=== PATIENT | female | born 1960 | race African-American/Black ===

== ENCOUNTER 2017-07-06 14:35 | Inpatient (IN) | payer MEDICAID ==
[~2017-07-06] VITALS: Ht 154.9 cm; Wt 45.4 kg
[2017-07-06 15:03] VITALS: BP 136/84
--- NOTE | 2017-07-06 16:11 | Emergency Room Report ---
History of Present Illness General Chief Complaint: Pain Source: Patient (Dung Monzon) Present Illness HPI 57-year-old female patient presents ER complaining of bilateral hand and feet pain and numbness. Patient reports history of diabetes. Patient reports she has not seen a primary care provider and "a long time". Reports that she builds up an accumulation of her diabetes medications and has been using those to treat her diabetes. Patient denies fever, chest pain, shortness of breath. patient reports that she did not take her diabetes medications today due to knowing that she was coming to the ER and expected be treated here. Patient denies history of arthritis. Patient denies nausea, vomiting, abdominal pain. She reports she is able to ambulate without difficulty. Difficulty opening item secondary to hand numbness. Patient reports history of smoking. (Dung Monzon) Allergies: Coded Allergies: No Known Allergies (Unverified , 07/06/17) Patient History Past Medical History: see triage record Last Menstrual Period: [place] Now: No Reviewed Nursing Documentation: PMH: Agreed; PSxH: Agreed (Dung Monzon) Nursing Documentation-PMH Hx Diabetes: Yes (Dung Monzon) Review of Systems All Other Systems: negative except mentioned in HPI (Dung Monzon) Physical Exam Vital Signs Date Time Temp Pulse Resp B/P (MAP) Pulse Ox O2 Delivery O2 Flow Rate FiO2 07/06/17 14:53 98.1 74 18 136/84 98 98.1 07/06/17 15:03 Room Air Sp02 EP Interpretation: reviewed, normal General Appearance: well appearing, no apparent distress, alert, GCS 15, non- toxic Head: normocephalic, atraumatic Eyes: bilateral eye normal inspection, bilateral eye PERRL Neck: full range of motion Respiratory: lungs clear, normal breath sounds, no rhonchi, no respiratory distress, no accessory muscle use, no wheezing, speaking full sentences Cardiovascular #1: regular rate, rhythm, no edema Cardiovascular #2: 2+ radial (R), 2+ radial (L), 2+ dorsalis pedis (R), 2+ dorsalis pedis (L) Musculoskeletal: back normal, digits/nails normal, gait/station normal, normal range of motion, non-tender, swelling - mild swelling of PIP joints, other Neurologic: alert, oriented x3, responsive, motor strength/tone normal, sensory intact Psychiatric: mood/affect normal Skin: no rash (Dung Monzon) Medical Decision Making PA Attestation Dr. Bryan is my supervising Physician whom patient management has been discussed with. (Dung Monzon) Diagnostic Impression: Primary Impression: Hyperglycemia Additional Impressions: Bilateral hand pain Foot pain, bilateral ER Course Pt. presents to the ED c/o bilateral foot and hand pain, uncontrolled diabetes. Ddx considered but are not limited to sprain, strain, gout, arthritis, peripheral neuropathy. Vital signs: are WNL, pt. is afebrile Ordered labs. ER COURSE: CBC unremarkable CMP shows no elevation of LFTs BNP elevated Drug screen positive for THC EKG shows no ST elevations or arrhythmia Glucose elevated at 584, will order IV fluids and insulin. Hand and foot symptoms consistent with arthritis vs diabetes complications. Informed patient she needs outpatient followup with PCP for referral to keyboard specialist and/or rheumatology. Consult with Dr. Bryan, patient okay to be admitted for hyperglycemia. Patient will be admitted. - Please note that this Emergency Department Report was dictated using [employer] technology software, occasionally this can lead to erroneous entry secondary to interpretation by the dictation equipment. Labs Test 07/06/17 15:50 White Blood Count 8.3 K/UL (4.8-10.8) Red Blood Count 5.67 M/UL (4.20-5.40) Hemoglobin 17.5 G/DL (12.0-16.0) Hematocrit 51.6 % (37.0-47.0) Mean Corpuscular Volume 91 FL (80-99) Mean Corpuscular Hemoglobin 30.8 PG (27.0-31.0) Mean Corpuscular Hemoglobin Concent 33.9 G/DL (32.0-36.0) Red Cell Distribution Width 11.5 % (11.6-14.8) Platelet Count 124 K/UL (150-450) Mean Platelet Volume 12.4 FL (6.5-10.1) Neutrophils (%) (Auto) 76.3 % (45.0-75.0) Lymphocytes (%) (Auto) 17.2 % (20.0-45.0) Monocytes (%) (Auto) 4.5 % (1.0-10.0) Eosinophils (%) (Auto) 0.9 % (0.0-3.0) Basophils (%) (Auto) 1.1 % (0.0-2.0) Sodium Level 135 MMOL/L (136-145) Potassium Level 4.6 MMOL/L (3.5-5.1) Chloride Level 97 MMOL/L (98-107) Carbon Dioxide Level 31 MMOL/L (21-32) Anion Gap 7 mmol/L (5-15) Blood Urea Nitrogen 21 mg/dL (7-18) Creatinine 0.9 MG/DL (0.55-1.30) Estimat Glomerular Filtration Rate > 60 mL/min (>60) Glucose Level 584 MG/DL (74-106) Calcium Level 9.4 MG/DL (8.5-10.1) Total Bilirubin 0.4 MG/DL (0.2-1.0) Aspartate Amino Transf (AST/SGOT) 23 U/L (15-37) Alanine Aminotransferase (ALT/SGPT) 51 U/L (12-78) Alkaline Phosphatase 107 U/L (46-116) Total Creatine Kinase 62 U/L (26-308) Creatine Kinase MB 2.6 NG/ML (0.0-3.6) Creatine Kinase MB Relative Index 4.1 C-Reactive Protein, Quantitative < 0.4 mg/dL (0.00-0.90) Pro-B-Type Natriuretic Peptide 435 pg/mL (0-125) Total Protein 6.8 G/DL (6.4-8.2) Albumin 3.6 G/DL (3.4-5.0) Globulin 3.2 g/dL Albumin/Globulin Ratio 1.1 (1.0-2.7) Urine Opiates Screen Negative (NEGATIVE) Urine Barbiturates Screen Negative (NEGATIVE) Phencyclidine (PCP) Screen Negative (NEGATIVE) Urine Amphetamines Screen Negative (NEGATIVE) Urine Benzodiazepines Screen Negative (NEGATIVE) Urine Cocaine Screen Negative (NEGATIVE) Urine Marijuana (THC) Screen Positive (NEGATIVE) (Dung Monzon) ER Course History and physical reviewed by me. Evaluation and treatment discussed in detail. Contacted Dr. Chavez for admission. (Ashkan Bryan M.D.) EKG Diagnostic Results Rate: normal Rhythm: NSR ST Segments: no acute changes ASA given to the pt in ED: No PA Scribe Text Sami Monzon PA-C (Dung Monzon) Rhythm Strip Diag. Results EP Interpretation: yes Rate: 75 Rhythm: NSR, no PVC's, no ectopy PA Scribe Text Sami Monzon PA-C (Dung Monzon) Last Vital Signs Date Time Temp Pulse Resp B/P (MAP) Pulse Ox O2 Delivery O2 Flow Rate FiO2 07/06/17 15:03 98.1 88 18 136/84 98 Room Air 98.1 (Dung Monzon.Ap[place]) Disposition: ADMITTED INPATIENT Condition: Serious Referrals: NOT CHOSEN IPA/,REFERRING (PCP) Dung Monzon Jul 06, 2017 16:11 Ashkan Bryan M.D. July 08, 2017 16:45
[2017-07-06 16:25] LABS: BASOPHILS % (AUTO) 1.1 % (0.0-2.0); EOSINOPHILS % (AUTO) 0.9 % (0.0-3.0); HEMATOCRIT 51.6 % (37.0-47.0); HEMOGLOBIN 17.5 G/DL (12.0-16.0); LYMPHOCYTES % (AUTO) 17.2 % (20.0-45.0); MEAN CORPUSCULAR VOLUME 91 FL (80-99); MONOCYTES % (AUTO) 4.5 % (1.0-10.0); NEUTROPHILS % (AUTO) 76.3 % (45.0-75.0); PLATELET COUNT 124 K/UL (150-450); RED BLOOD COUNT 5.67 M/UL (4.20-5.40); RED CELL DISTRIBUTION WIDTH 11.5 % (11.6-14.8); WHITE BLOOD COUNT 8.3 K/UL (4.8-10.8)
[2017-07-06 16:45] LABS: ALANINE AMINOTRANSFERASE 51 U/L (12-78); ALBUMIN 3.6 G/DL (3.4-5.0); ALBUMIN/GLOBULIN RATIO 1.1 (1.0-2.7); ALKALINE PHOSPHATASE 107 U/L (46-116); ANION GAP 7 mmol/L (5-15); ASPARTATE AMINO TRANSFERASE 23 U/L (15-37); BILIRUBIN,TOTAL 0.4 MG/DL (0.2-1.0); BLOOD UREA NITROGEN 21 mg/dL (7-18); CALCIUM 9.4 MG/DL (8.5-10.1); CARBON DIOXIDE 31 MMOL/L (21-32); CHLORIDE 97 MMOL/L (98-107); CKMB 2.6 NG/ML (0.0-3.6); CREATINE KINASE 62 U/L (26-308); CREATININE 0.9 MG/DL (0.55-1.30); POTASSIUM 4.6 MMOL/L (3.5-5.1); SODIUM 135 MMOL/L (136-145)
[2017-07-06] MEDS ORDERED: METFORMIN HCL1000 M1 ORAL (17:14)
[2017-07-06] MEDS ORDERED: VITAMIN D1000 UNI1 ORAL (17:14)
[2017-07-06] MEDS ORDERED: LANTUS SOL100 UNIT/1 SUBQ (17:14)
[2017-07-06 18:50] VITALS: BP 134/79
[2017-07-06 20:34] VITALS: BP 159/88
[2017-07-06] MEDS ORDERED: Morphine Sulfate 4mg/ml Inj IVP PRN (21:30)
[2017-07-06] MEDS ORDERED: Zolpidem 5mg tab ORAL PRN (21:30)
[2017-07-06] MEDS ORDERED: Levemir Flexpen SUBQ SCH (23:00)
[2017-07-06 23:13] VITALS: BP 144/79
[2017-07-07 04:31] VITALS: BP 141/72
[2017-07-07] MEDS: NovoLOG Insulin Flexpen SUBQ SCH ×4 (06:04→12:06)
[2017-07-07 07:06] LABS: BASOPHILS % (AUTO) 0.8 % (0.0-2.0); EOSINOPHILS % (AUTO) 1.2 % (0.0-3.0); HEMATOCRIT 46.7 % (37.0-47.0); HEMOGLOBIN 16.5 G/DL (12.0-16.0); MEAN CORPUSCULAR VOLUME 90 FL (80-99); MONOCYTES % (AUTO) 6.4 % (1.0-10.0); NEUTROPHILS % (AUTO) 68.7 % (45.0-75.0); PLATELET COUNT 125 K/UL (150-450); RED CELL DISTRIBUTION WIDTH 11.3 % (11.6-14.8); WHITE BLOOD COUNT 8.6 K/UL (4.8-10.8)
[2017-07-07 07:09] LABS: ANION GAP 7 mmol/L (5-15); BLOOD UREA NITROGEN 15 mg/dL (7-18); CALCIUM 8.5 MG/DL (8.5-10.1); CARBON DIOXIDE 27 MMOL/L (21-32); CHLORIDE 103 MMOL/L (98-107); CREATININE 0.7 MG/DL (0.55-1.30); POTASSIUM 3.7 MMOL/L (3.5-5.1); SODIUM 137 MMOL/L (136-145)
[2017-07-07 09:00] VITALS: BP 138/78
[2017-07-07] MEDS ORDERED: metFORMIN 500mg tab ORAL SCH (09:00)
[2017-07-07] MEDS ORDERED: Vitamin D 1000 IU Tab ORAL SCH (09:00)
--- NOTE | 2017-07-07 12:15 | Consultation ---
DATE OF CONSULTATION: 07/07/2017 ENDOCRINOLOGY CONSULTATION CONSULTING PHYSICIAN: Chava Alas M.D. REFERRING PHYSICIAN: Heber Chavez D.O. REASON FOR CONSULTATION: Diabetes management. HISTORY OF PRESENT ILLNESS: The patient is a pleasant 57-year-old female with history of diabetes over the past two years admitted to the hospital with hyperglycemia without any ketoacidosis. Also complaining of bilateral lower extremities feet numbness. As an outpatient, she has been on insulin dose of 20 units daily with metformin. She has not been compliant with her diabetic medication. PAST MEDICAL HISTORY: Diabetes. FAMILY HISTORY: Diabetes. SOCIAL HISTORY: Denies any smoking, alcohol, or drug use. REVIEW OF SYSTEMS: As per history of present illness. LABORATORY VALUES: Sodium 135, potassium 4.6, chloride 97, bicarb 31, BUN 21, creatinine 0.9, glucose of 584. PHYSICAL EXAMINATION: GENERAL: She is awake and alert. VITAL SIGNS: Blood pressure is 141/72, pulse 69, temperature 97.2 degrees, respiratory rate of 20. HEENT: Pupils are equal and reactive to light and accommodation. Sclerae anicteric. NECK: No JVD. No thyromegaly. No bruit. LUNGS: Clear. HEART: Regular rate and rhythm. ABDOMEN: Positive bowel sounds. EXTREMITIES: No clubbing, cyanosis, or edema. DIAGNOSIS: Diabetes out of control without any ketoacidosis. PLAN: 1. Start Levemir 30 units at bedtime. 2. Start NovoLog 6 units before each meal. 3. Continue with metformin 1000 mg b.i.d. 4. NovoLog sliding scale is in order, before meals and at bedtime. 5. Further adjustment according to blood glucose values. Thank you, Dr. Chavez, for the courtesy of this consultation. Chava Alas M.D. DR: ANTONIO JOB#: [id number] CC:
[2017-07-07] MEDS ORDERED: 1/2 NS 1000ml IV ONE (13:59)
[2017-07-07] MEDS ORDERED: D5W 275ml ONE (13:59)
--- NOTE | 2017-07-07 16:54 | Cardiology Report ---
APPROVED REPORT EKG Measurement Heart [id number] Normal sinus rhythm Possible Anterior infarct, age undetermined Abnormal ECG
--- NOTE | 2017-07-07 21:00 | History and Physical Report ---
DATE OF ADMISSION: 07/06/2017 TIME: 2 p.m. CONSULTANTS: Chava Alas M.D. CHIEF COMPLAINT: Hyperglycemia, diabetes. BRIEF HISTORY: The patient is a 57-year-old female, who lives at home with history of diabetes, apparently has been negligent and taking her medications for the past month. She was feeling little bit weak and lethargic. I checked her sugar, it was 583. The patient came to [facility], diagnosed with above, admitted to the medical floor for further treatment. Currently, feeling better and wants to go home. PAST MEDICAL HISTORY: Diabetes. PAST SURGICAL HISTORY: Nothing. MEDICATIONS: Glucophage, NovoLog, Levemir, morphine, Ambien, and Novolin. ALLERGIES: Denies. SOCIAL HISTORY: Positive smoke. No alcohol. Positive marijuana use. REVIEW OF SYSTEMS: No chest pain. No shortness of breath. No nausea, vomiting, or diarrhea. PHYSICAL EXAMINATION: GENERAL: Calm in bed, oriented x3, in no acute distress. VITAL SIGNS: Temperature is 98 degrees, pulse 66, respirations 20, and blood pressure 130/78. CARDIOVASCULAR: No murmur. LUNGS: Distant and clear. ABDOMEN: Bowel sounds positive. Nontender. Nondistended. EXTREMITIES: No cyanosis or edema. NEUROLOGIC: Cranial nerves II through XII grossly intact. Deep tendon reflexes 2+. Muscle strength 5/5. LABORATORY DATA: Labs at this time show CBC is normal, actually platelets was 124 and today is 125. BMP yesterday, glucose 584 and today glucose 204, otherwise everything is normal. Urine toxicology positive for marijuana. ASSESSMENT: 1. Diabetes. 2. Hyperglycemia. PLAN: 1. Continue previous medications. 2. Blood sugar control. 3. Dietary followup. 4. Dr. Alas, Endocrine will follow the patient. 5. will likely leave AMA shortly. 6. We will continue to follow the patient medically. Heber Chavez D.O. DR: CHAPO JOB#: [id number] CC:
--- NOTE | 2017-07-09 14:45 | Discharge Summary ---
Discharge Summary Hospital Course Date of Admission Jul 06, 2017 at 17:22 Date of Discharge July 07, 2017 at 14:00 Admitting Diagnosis HYPERGLYCEMIA HPI Fatuma Horton is a 57 year old female who was admitted on Jul 06, 2017 at 17: 22 for Hyperglycemia Hospital Course [id number] Discharge Discharge Disposition Patient was discharged to Home (01) Cristal Gunn NP July 09, 2017 14:45
--- NOTE | 2017-07-09 19:00 | Discharge Summary 2 SIG ---
DATE OF ADMISSION: 07/06/2017 DATE OF DISCHARGE: 07/07/2017 PROPERTY INSURANCE CLAIMS EXAMINER: Chava Alas M.D. BRIEF HOSPITAL COURSE: The patient is a 57-year-old female, who lives at home. She has history of diabetes and apparently had been negligent on taking her medications for the past month. She was feeling weak and lethargic. Sugar was 583. She then presented to [facility], where on evaluation was noted to have elevated glucose. She was given IV fluids and insulin. Urine drug screen was positive for marijuana. EKG showed no ST elevations or arrhythmia. CBC and CMP was unremarkable. BNP was elevated to 435. She was then admitted for evaluation of hyperglycemia. As outpatient, she had been on insulin dose 20 units together with metformin, however, has been noncompliant. She was seen by Dr. Alas and Levemir 30 units was given at bedtime with NovoLog 6 units before meals. She was ordered to continue with metformin 1000 mg b.i.d., however, full treatment was not carried out as the patient left against medical advice. FINAL DIAGNOSES: 1. Diabetes mellitus out of control without any ketoacidosis. 2. Noncompliance. DISPOSITION: The patient left AMA. Heber Chavez D.O. I have been assigned to dictate discharge summary on this account and I was not involved in the patient's management. Cristal Gunn N.P. DR: CECILY JOB#: [id number] CC:
== END 2017-07-07 14:00 | disposition left against medical advice (07) | DRG 420 ==
LOC: EMR 15:32 → 4W 17:22 → EDBEDREQ 18:49
DX: E11.65 Type 2 diabetes mellitus with hyperglycemia (principal); F12.90 Cannabis use, unspecified, uncomplicated; M79.641 Pain in right hand; Z91.14 Patient's other noncompliance with medication regimen; Z91.19 Patient's noncompliance with other medical treatment and regimen; Z79.4 Long term (current) use of insulin; M79.642 Pain in left hand; M79.672 Pain in left foot; M79.671 Pain in right foot; Z87.891 Personal history of nicotine dependence
CPT/HCPCS: 36415; 80048; 80053; 80307; 82550; 82553; 82962; 83036; 83880; 85025; 86140; 93005; 99285; J1815; S5561